=== PATIENT | female | born 1990 | race Two or more races ===

== ENCOUNTER 2018-09-29 13:17 | Inpatient (IN) | payer OTHER ==
[~2018-09-29] VITALS: Ht 157.5 cm; Wt 54.4 kg
--- NOTE | 2018-09-29 16:00 | NUR ---
REHABILITATION SERVICES COORDINATOR NOTES RECEIVED PATIENT DIRECT ADMIT FROM [facility]. PATIENT ALERT, ORIENTED X3 DENIES ANY PAIN OR SOB. REPORTS HAVING DIARRHEA FOR MORE THEN 5 DAYS. PATIENT PLACED IN BED. ORIENTED TO ROOM. CALL LIGHT WITHIN REACH. PERIPHERAL IV INTACT PATENT. JORY Beauchamp MADE AWARE OF PATIENTS ARRIVAL WILL CONTINUE TO MONITOR.
[2018-09-29] MEDS ORDERED: ONDANSETRON HCL/PF 4 MG/2 ML VIAL IVP PRN (17:30)
[2018-09-29] MEDS ORDERED: MAGNESIUM HYDROXIDE 30 ML UDC PO PRN (17:30)
[2018-09-29] MEDS ORDERED: Z GUARD REMEDY 2 OZ OINT TP PRN (17:30)
[2018-09-29] MEDS ORDERED: ACETAMINOPHEN 325 MG TABLET PO PRN (17:30)
[2018-09-29] MEDS ORDERED: ZOLPIDEM TARTRATE 5 MG TABLET PO PRN (17:30)
[2018-09-29] MEDS ORDERED: HYDROCODONE/APAP 5/325MG 1 EACH TABLET PO PRN (17:30)
[2018-09-29] MEDS: IV NS 0.9% 1,000 ML IV PRN (17:38)
[2018-09-29 18:43] LABS: BASOPHILS % (AUTO) 0.1 % (0.0-2.0); HEMATOCRIT 33 % (33-45); LYMPHOCYTES # (AUTO) 0.8 /CMM (0.8-4.8); LYMPHOCYTES % (AUTO) 7.5 % (20.0-44.0); MEAN CORPUSCULAR HGB CONC 33 g/dl (31.0-36.0); MEAN CORPUSCULAR VOLUME 85 fL (82-100); MONOCYTES # (AUTO) 1.7 /CMM (0.1-1.30); MONOCYTES % (AUTO) 15.1 % (2.0-12.0); NEUTROPHILS # (AUTO) 8.6 /CMM (1.8-8.9); NEUTROPHILS % (AUTO) 77.3 % (43.0-81.0); PLATELET COUNT (AUTO) 232 /CMM (150-450); RED BLOOD CELL COUNT(AUTO) 3.88 MIL/uL (4.0-5.2); WHITE BLOOD COUNT (AUTO) 11.1 K/uL (4.3-11.0)
[2018-09-29 18:52] LABS: CALCIUM, SERUM 8.2 mg/dL (8.5-10.1); CREATININE 0.9 mg/dL (0.6-1.3)
--- NOTE | 2018-09-29 19:00 | NUR ---
RN OPENING NOTES PT AWAKE AND RESTING IN BED. NO COMPLAINTS OF PAIN, SOB OR DISTRESS AT THIS TIME. PT HAS A LEFT AC #20 IV INTACT AND RUNNING NS @150ML/HR. PER PATIENT ONLY ONE EPISODE OF DIARRHEA DURING DAY SHIFT. PT TELE MONITORED NSR. SAFETY PRECAUTIONS IN PLACE, BED IN LOWEST LOCKED POSITION, X2 SIDE RAILS UP AND CALL LIGHT WITHIN REACH. WILL CONTINUE TO MONITOR.
[2018-09-29 19:20] LABS: POTASSIUM 2.5 mmol/L (3.5-5.1)
[2018-09-29] MEDS: CIPROFLOXACIN IV RTU 400 MG in PREMIX 1 EA IV SCH (19:25)
[2018-09-29] MEDS ORDERED: POTASSIUM CHLORIDE 20 MEQ TAB.PRT.SR PO ONE (19:30)
--- NOTE | 2018-09-29 19:30 | NUR ---
COMMERCIAL LEASING AGENT NOTES CALL RECEIVED FROM LAB WITH RESULTS OF POTASSIUM OF 2.4 JORY Beauchamp DEMONSTRATOR ELECTRIC GAS APPLIANCES MADE AWARE WILL PLACE ADDITIONAL ORDERS. MERRICK PM NURSE MADE AWARE ENDORSED CARE TO PM NURSE.
[2018-09-29 20:30] VITALS: BP 96/59
[2018-09-29 20:31] VITALS: BP 97/53
[2018-09-30 00:06] VITALS: BP 100/62
[2018-09-30] MEDS: IV NS 0.9% 1,000 ML IV PRN ×2 (00:45→17:27)
[2018-09-30 03:48] VITALS: BP 96/56
[2018-09-30] MEDS: CIPROFLOXACIN IV RTU 400 MG in PREMIX 1 EA IV SCH ×2 (05:10→17:27)
--- NOTE | 2018-09-30 06:26 | NUR ---
RN CLOSING NOTES PT AWAKE AND RESTING IN BED. NO COMPLAINTS OF PAIN, SOB OR DISTRESS OVERNIGHT. PT HAS A LEFT AC #20 IV INTACT AND RUNNING NS @150ML/HR. PT HAD X2 EPISODES OF DIARRHEA. PT TELE MONITORED NSR RATE IN THE 80S. ALL PATIENT NEEDS MET OVERNIGHT. SAFETY PRECAUTIONS IN PLACE, BED IN LOWEST LOCKED POSITION, X2 SIDE RAILS UP AND CALL LIGHT WITHIN REACH. WILL ENDORSE TO DAY SHIFT NURSE FOR CONTINUITY OF CARE.
[2018-09-30 07:07] LABS: BASOPHILS % (AUTO) 0.2 % (0.0-2.0); EOSINOPHILS % (AUTO) 0.1 % (0.0-6.0); HEMATOCRIT 31 % (33-45); HEMOGLOBIN 10.6 g/dL (11.5-14.8); LYMPHOCYTES # (AUTO) 0.8 /CMM (0.8-4.8); LYMPHOCYTES % (AUTO) 8.6 % (20.0-44.0); MEAN CORPUSCULAR HGB CONC 34 g/dl (31.0-36.0); MEAN CORPUSCULAR VOLUME 86 fL (82-100); MONOCYTES % (AUTO) 10.9 % (2.0-12.0); NEUTROPHILS # (AUTO) 7.5 /CMM (1.8-8.9); NEUTROPHILS % (AUTO) 80.2 % (43.0-81.0); PLATELET COUNT (AUTO) 254 /CMM (150-450); RED BLOOD CELL COUNT(AUTO) 3.67 MIL/uL (4.0-5.2); WHITE BLOOD COUNT (AUTO) 9.4 K/uL (4.3-11.0)
[2018-09-30 07:23] LABS: CALCIUM, SERUM 7.8 mg/dL (8.5-10.1); CREATININE 0.9 mg/dL (0.6-1.3); MAGNESIUM 2.2 mg/dL (1.8-2.4)
[2018-09-30 08:00] VITALS: BP_SYST 93; BP_SYST 98; BP_DIAS 60
--- NOTE | 2018-09-30 08:00 | NUR ---
RN NOTES PATIENT SEEN IN THE BED A/O X4 FEMALE. PATIENT HAS NO ACUTE RESPIRATORY DISTRESS, V/S TAKEN BP93/60, P-90 FOLLOWING , INFUSING LEFT AC NS AT 150 ML/HR INTACT, PATIENT SELF CARE. SCHEDULED MEDICATION ADMINISTERED, ENCOURAGED TO EXPRESS FEELINGS AND CONCERNS. PATIENT QUIET, NO ACUTE RESPIRATORY DISTRESS. CALL LIGHT WITHIN TO REACH. SAFETY PRECAUTION MAINTAINED ALL THE TIME. PATIENT USING BATHROOM.
[2018-09-30] MEDS ORDERED: POTASSIUM CHLORIDE 20 MEQ TAB.PRT.SR PO SCH ×2 (10:00→11:30)
[2018-09-30] MEDS: Potassium Phosphate meq 11 MEQ in IV D5W 100 ML IV SCH ×2 (11:28→15:07)
--- NOTE | 2018-09-30 12:00 | NUR ---
RN NOTES PATIENT STABLE, NO COMPLAINING OF PAIN, ASSIST BATHROOM, UA COLLECTED FOR TEST. NEXT TO THE BED , CALL LIGHT WITHIN TO REACH, SAFETY PRECAUTION MAINTAINED ALL THE TIME.
--- NOTE | 2018-09-30 15:00 | NUR ---
RN NOTES PATIENT REFUSED NEW IV ACCESS TO BE INSERTED PER MIDLINE HEATING AND BLENDING SUPERVISOR.
[2018-09-30 16:00] VITALS: BP 94/60
--- NOTE | 2018-09-30 18:25 | NUR ---
Patient was a direct admit from another acute hospital ER. She lives at home with family. She is ambulatory and independent with adl's. She sees her pcp at [facility]. Family will provide ride when discharge Addendum: 09/30/18 at 1825 by RAFA EDDY RN Amended: Links added.
--- NOTE | 2018-09-30 18:30 | NUR ---
RN NOTES CALLED NURSING ELEVATOR DISPATCHER FOR NEW MIDLINE INSERTION. GET CALL BACK WILL BE AROUND 2100 TO 2200 FOR MIDLINE. PATIENT IN THE BED HAS DIARRHEA X1, ENCOURAGED TO INCREASE FLUID INTAKE. NEXT TO THE BED. ENDORSED ONCOMING NURSE FOR PLAN OF CARE.
--- NOTE | 2018-09-30 19:39 | NUR ---
RN NOTES RECEIVE PT IN THE BED A/O X 4, TELE MONITOR WITH READING OF SR 100. IN STABLE CONDITION, NOT IN DISTRESS, SAFETY MEASURES IN PLACE. WILL CONTINUE TO MONITOR.
[2018-09-30 20:00] VITALS: BP_SYST 94; BP_SYST 96; BP_DIAS 64
--- NOTE | 2018-09-30 20:00 | NUR ---
PARTY PLAN SALES CONSULTANT TEMP OF 100.9 COLLING MEASURES PROVIDED WILL CONT TO MTR
--- NOTE | 2018-09-30 20:15 | NUR ---
AWAITING MIDLINE INSERTION PT REFUSED IV INSERTION DESPITE EXPLAINING RISKS AND BENEFITS SINCE DAY SHIFT RECEIVE PT WITHOUT IV HEPLOCK.
--- NOTE | 2018-09-30 22:00 | NUR ---
VAULT CUSTODIAN PT AGREED TO HAVE IV INSERTION. INSERTED R WRIST 22. TOLERATED WELL
[2018-10-01] VITALS: BP 100/69
--- NOTE | 2018-10-01 00:39 | NUR ---
SIGNAL MAINTAINER HELPER NOTES TEMPERATURE OF 99.8 TYLENOL 650 MG PO AND COOLING MEASURES GIVEN WILL CONTINUE TO MONITOR
--- NOTE | 2018-10-01 01:39 | NUR ---
TEMP AT 98.5
[2018-10-01 04:00] VITALS: BP 100/68
[2018-10-01] MEDS: CIPROFLOXACIN IV RTU 400 MG in PREMIX 1 EA IV SCH (05:29)
[2018-10-01] MEDS: IV NS 0.9% 1,000 ML IV PRN ×2 (05:30→18:23)
--- NOTE | 2018-10-01 06:11 | NUR ---
RN CLOSING NOTE PT IN BED RESTING ASLEEP AND EASILY AWAKEN. SR 84 IN THE TELE MONITOR. NO S/S OF RESP DISTRESS OR SOB. NO C/O PAIN AT THIS TIME. ALL PT NEEDS ANTICIPATED AND MET. KEPT CLEAN AND DRY AND COMFORT, SAFETY MEASURES IN PLACE, CALL LIGHT WITHIN REACH. WILL ENDORSE TO STOCKING INSPECTOR FOR NAYA.
--- NOTE | 2018-10-01 06:12 | NUR ---
NO DIARRHEA THROUGHOUT THE SHIFT
--- NOTE | 2018-10-01 07:15 | NUR ---
TELE/RN OPENING NOTE THE PATIENT IS RECEIVED IN BED. AWAKE, ALERT AND ORIENTED X4. IN ROOM AIR AND DENIES SOB. RESPIRATION REGULAR AND UNLABORED. DENIES PAIN. TELE BOX READING SR 80. IN LINE PATENT AND INTACT AND NORMAL SALINE INFUSING AT 150ML/HR. NO S/S INFILTRATION NOTED. BED LOW AND LOCKED. SIDE RAILS UP X3. CALL LIGHT WITHIN REACH. WILL CONTINUE TO MONITOR.
[2018-10-01 07:41] LABS: BASOPHILS % (AUTO) 0.1 % (0.0-2.0); EOSINOPHILS % (AUTO) 0.5 % (0.0-6.0); HEMATOCRIT 32 % (33-45); HEMOGLOBIN 10.9 g/dL (11.5-14.8); LYMPHOCYTES # (AUTO) 1.6 /CMM (0.8-4.8); LYMPHOCYTES % (AUTO) 18.1 % (20.0-44.0); MEAN CORPUSCULAR HGB CONC 34 g/dl (31.0-36.0); MEAN CORPUSCULAR VOLUME 85 fL (82-100); MONOCYTES # (AUTO) 1.3 /CMM (0.1-1.30); MONOCYTES % (AUTO) 14.9 % (2.0-12.0); NEUTROPHILS # (AUTO) 5.9 /CMM (1.8-8.9); NEUTROPHILS % (AUTO) 66.4 % (43.0-81.0); PLATELET COUNT (AUTO) 333 /CMM (150-450); RED BLOOD CELL COUNT(AUTO) 3.79 MIL/uL (4.0-5.2); WHITE BLOOD COUNT (AUTO) 8.9 K/uL (4.3-11.0)
[2018-10-01 08:00] VITALS: BP 107/69
[2018-10-01 08:01] LABS: CALCIUM, SERUM 7.8 mg/dL (8.5-10.1); CREATININE 0.7 mg/dL (0.6-1.3); MAGNESIUM 1.6 mg/dL (1.8-2.4); PHOSPHORUS 2.5 mg/dL (2.5-4.9)
[2018-10-01 08:05] LABS: POTASSIUM 2.5 mmol/L (3.5-5.1)
[2018-10-01] MEDS: POTASSIUM CHLORIDE 20 MEQ TAB.PRT.SR PO SCH ×2 (10:21→12:32)
[2018-10-01] MEDS ORDERED: Magnesium 1GM/D5W 100ML PREMIX 100 ML IV SCH (10:30)
[2018-10-01 12:00] VITALS: BP 101/65
[2018-10-01 16:00] VITALS: BP 104/67
--- NOTE | 2018-10-01 18:30 | NUR ---
TELE/RN NOTE THE PATIENT ALERT AND ORIENTED X4. DENIES SOB. RESPIRATION REGULAR AND UNLABORED. IN NO APPARENT DISTRESS. IV FLUID INFUSING WITH NO S/S INFILTRATION. PATIENT IN NO APPARENT DISTRESS. BED LOW AND LOCKED. SIDE RAILS UP X3. CALL LIGHT WITHIN REACH. WILL ENDORSE TO PAYROLL BOOKKEEPER.
--- NOTE | 2018-10-01 19:29 | NUR ---
RN NOTES RECEIVE PT IN THE BED A/O X 4, TELE MONITOR WITH READING OF SR 84. IN STABLE CONDITION, NOT IN DISTRESS, SAFETY MEASURES IN PLACE. WILL CONTINUE TO MONITOR.
[2018-10-01 20:00] VITALS: BP 108/73
[2018-10-02] VITALS: BP 106/68
[2018-10-02] MEDS: IV NS 0.9% 1,000 ML IV PRN ×2 (02:16→12:59)
[2018-10-02 04:00] VITALS: BP 101/68
--- NOTE | 2018-10-02 06:05 | NUR ---
RN CLOSING NOTE PT IN BED RESTING ASLEEP AND EASILY AWAKEN. IN THE TELE MONITOR WITH SINUS TACHY 102 PT NOT IN DISTRESS. NO S/S OF RESP DISTRESS OR SOB, NEEDS ATTENDED AND ANTICIPATED. KEPT CLEAN AND DRY AND COMFORT, NO EPISODE OF DIARRHEA. SAFETY MEASURES IN PLACE, CALL LIGHT WITHIN REACH. WILL ENDORSE TO TRAFFIC INCIDENT MANAGEMENT MANAGER FOR NAYA.
[2018-10-02 07:11] LABS: CALCIUM, SERUM 8.2 mg/dL (8.5-10.1); CREATININE 0.5 mg/dL (0.6-1.3); MAGNESIUM 2.2 mg/dL (1.8-2.4); PHOSPHORUS 3.3 mg/dL (2.5-4.9); POTASSIUM 3.2 mmol/L (3.5-5.1)
--- NOTE | 2018-10-02 07:30 | NUR ---
MS RN OPENING NOTES RECEIVED PATIENT IN STABLE CONDITION. BED SIDE RAILS ARE UP X2. BED IS LOCKED AND LOWERED. CALL LIGHT IS WITHIN REACH. IV LINE IS INTACT AND PATENT. WILL CONTINUE TO MONITOR PATIENT.
[2018-10-02 07:33] LABS: BASOPHILS % (AUTO) 0.5 % (0.0-2.0); EOSINOPHILS % (AUTO) 1.3 % (0.0-6.0); HEMATOCRIT 30 % (33-45); HEMOGLOBIN 9.9 g/dL (11.5-14.8); LYMPHOCYTES # (AUTO) 2.2 /CMM (0.8-4.8); LYMPHOCYTES % (AUTO) 21.8 % (20.0-44.0); MEAN CORPUSCULAR HGB CONC 34 g/dl (31.0-36.0); MEAN CORPUSCULAR VOLUME 86 fL (82-100); MONOCYTES # (AUTO) 1.2 /CMM (0.1-1.30); MONOCYTES % (AUTO) 11.9 % (2.0-12.0); NEUTROPHILS # (AUTO) 6.4 /CMM (1.8-8.9); NEUTROPHILS % (AUTO) 64.5 % (43.0-81.0); PLATELET COUNT (AUTO) 437 /CMM (150-450); RED BLOOD CELL COUNT(AUTO) 3.46 MIL/uL (4.0-5.2)
[2018-10-02 08:00] VITALS: BP 113/71
[2018-10-02] MEDS ORDERED: POTASSIUM CHLORIDE 20 MEQ TAB.PRT.SR PO SCH (10:30)
[2018-10-02 12:00] VITALS: BP 107/70
[2018-10-02 16:00] VITALS: BP 105/70
--- NOTE | 2018-10-02 16:55 | NUR ---
PATIENT WAS DISCHARGED IN STABLE CONDITION. IN NO APPARENT DISTRESS. EXITCARE WAS SIGNED AND PROVIDED TO THE PATIENT. BELONGINGS WERE CHECKED AND PROVIDED TO THE PATIENT. ALL NEEDS WERE MET. DOSCTORS NOTE WAS PROVIDED TO THE PATIENT. IV LINE AND ID BAND WERE REMOVED. PATIENT WAS ESCORTED OUT OF THE FACILITY VIA WHEELCHAIR BY FABIÁN MCMULLEN AND . WILL DRIVE PATIENT HOME SAFELY.
== END 2018-10-02 16:00 | disposition home or self-care (01) | DRG 248 ==
LOC: TELE 16:00 → MED 10-02 15:45
PROVIDERS: ADMIT Nurse Practitioner Acute Care; ATTEND Nurse Practitioner Acute Care
DX: A04.9 Bacterial intestinal infection, unspecified (principal); E83.39 Other disorders of phosphorus metabolism; D72.829 Elevated white blood cell count, unspecified; E86.0 Dehydration; E87.6 Hypokalemia; K59.00 Constipation, unspecified
CPT/HCPCS: 36415; 80048-TC; 80061-TC; 83605-TC; 83735-TC; 84100-TC; 84703-TC; 85025-TC; 87081-TC; A4216; G0378; J0744; J3475; J3490; J7030; J7060; Q2036